=== PATIENT | male | born 1965 | race Caucasian/White ===

== ENCOUNTER 2016-07-31 10:20 | Emergency (ER) | payer BC | END 2016-07-31 14:24 | disposition short-term general hospital (02) | LOC: ER 10:20 | DX: K92.2 Gastrointestinal hemorrhage, unspecified (principal); I10 Essential (primary) hypertension; F17.210 Nicotine dependence, cigarettes, uncomplicated | CPT/HCPCS: 36415; 36430; 96361; 96374; P9021 ==